=== PATIENT | female | born 1990 | race Caucasian/White ===

== ENCOUNTER 2017-03-26 06:36 | Inpatient (IN) ==
[2017-03-26] MEDS ORDERED: BUTORPHANOL 2 MG/ML VIAL IV PRN (07:43)
[2017-03-26] MEDS ORDERED: ONDANSETRON 4 MG/2 ML VIAL IV PRN (07:43)
[2017-03-26] MEDS ORDERED: OXYTOCIN/LR 20 UNIT/1,000 ML BAG IV ONE ×2 (07:45→15:20)
[2017-03-26] MEDS ORDERED: diphenhydrAMINE 50 MG/1 ML VIAL IV PRN ×2 (07:48)
[2017-03-26] MEDS ORDERED: ONDANSETRON 4 MG/2 ML VIAL IV ONE (07:48)
[2017-03-26] MEDS ORDERED: fentaNYL 2 MCG/ROPIV 0.2% EPID 150 ML EPIDURAL SCH (07:48)
[2017-03-26] MEDS ORDERED: PROMETHAZINE 25 MG/1 ML VIAL IM ONE (07:48)
[2017-03-26] MEDS ORDERED: hydrOXYzine HCL 25 MG/1 ML VIAL IM PRN (07:48)
[2017-03-26] MEDS ORDERED: CITRIC ACID/SODIUM CITRATE 30 ML UDCUP PO ONE (07:48)
[2017-03-26] MEDS ORDERED: ePHEDrine 50 MG/ML AMP IV PRN (07:48)
[2017-03-26] MEDS ORDERED: FAMOTIDINE 20 MG/2 ML VIAL IV ONE (07:48)
[2017-03-26] MEDS ORDERED: LACTATED RINGERS 1,000 ML IV ONE (07:48)
[2017-03-26] MEDS ORDERED: LACTATED RINGERS 1,000 ML IV SCH (08:00)
[2017-03-26] MEDS ORDERED: OXYTOCIN/LR 20 UNIT/1,000 ML BAG IV SCH (08:00)
--- NOTE | 2017-03-26 08:19 | Event Note ---
pelvic :3-4/50/-3 vtx. AROM scant clear fluid
[2017-03-26 08:24] LABS: Basophils # 0.1 10*3/uL (0.0-0.2); Basophils % 0.4 % (0.0-0.8); Eosinophils # 0.1 10*3/uL (0.0-0.87); Eosinophils % 0.7 % (0.00-10.9); Hematocrit 30.4 VOL% (35.7-47.0); Hemoglobin 9.9 GM/DL (12.0-16.0); Immature Granulocytes % 1.6 %; Immature Granulocytes Absolute 0.18 #; Lymphocytes # 2.4 10*3/uL (1.4-4.0); Lymphocytes % 20.7 % (21.3-54.2); Mean Corpuscular HGB Conc 32.6 GM/DL (32-36); Mean Corpuscular Hemoglobin 26 PG (27-34); Mean Corpuscular Volume 79.6 FL (87-102); Mean Platelet Volume 12.8 FL (9.6-12.0); Monocytes # 0.7 10*3/uL (0.11-0.8); Monocytes % 6.3 % (1.7-12.7); Neutrophils # 8.1 10*3/uL (1.4-7.4); Neutrophils % 70.3 % (38.7-73.9); Platelet Count 209 T/CUMM (130-400); Red Blood Count 3.82 MC/CUMM (3.8-5.5); Red Cell Distribution Width 14.1 % (9.3-17.3); White Blood Count 11.5 T/CUMM (4-12)
[2017-03-26 10:15] LABS: Giant Platelets Few; Hypochromasia Slight; Ovalocytes Slight; Platelet Estimate Normal
[2017-03-26 12:33] LABS: Apearance,Urine CLEAR (Clear); Bacteria,Urine Occasional /HPF (Few); Bilirubin,Urine Negative (Negative); Blood, Urine Negative (Negative); Glucose,Urine (UA) Negative (Negative); Ketones,Urine Negative (Negative); Mucus,Urine Occasional /LPF (Occasional); Nitrite,Urine Negative (Negative); Protein,Urine Negative; Squamous Epithelial Cell,Urine Occasional /HPF (0-10); Urine Color Straw (Yellow); Urine Specific Gravity 1.003 (1.001-1.035); Urine Urobilinogen < 2.0 EU/DL (0.2-1.0); WBC,Urine <1 /HPF (0-6)
--- NOTE | 2017-03-26 13:08 | Operative Note ---
Date of procedure: 03/26/17 Pre-op diagnosis: IUp at 39+ weeks , elective induction Post-op diagnosis: same Procedure: The pt was admitted at 39 + weeks for pitocin induction. She was ruptured this morning and pitocin was started. The pt got to completely dilated and shortly thereafter started pushing and in less than 15 minuted she delivered a viable boy over an intact perineum. Apgars 8 and 9. Weight pending at time of this report. The placenta delivered spontaneously. There were 2 skin tags that I got a verbal consent to remove. They were excised using Wills scissors. The base was repaired using 4-0 chromic in an interrupted fashion. Anesthesia: epidural Surgeon / Physician: Marcela Flores Estimated blood loss: other (200) Condition: stable Results - Labs CBC & BMP: 03/26/17 08:08 Discharge Plan - Discharge Medications No Action Pediatric Multivitamin No.42 [Flintstones Complete Chew Tab] 2 tablet PO DAILY - Follow Up or Referral - Forms/Instructions
--- NOTE | 2017-03-26 14:36 | Anesthesia Post-Op ---
Anesthesia Post OP - Post Ansesthetic Evaluation Patient seen in post op: Yes Resp: within normal limits CV: within normal limits Mental: within normal limits Temp: within normal limits Cvre-Rm-Sbzkgojby: within normal limits Nausea and Vomiting: within normal limits Pain: within normal limits
[2017-03-26] MEDS ORDERED: WITCH HAZEL PADS 100/JAR TOP PRN (15:20)
[2017-03-26] MEDS ORDERED: HYDROCORTISONE 2.5% RECTAL CREAM 30 GM TUBE TOP PRN (15:20)
[2017-03-26] MEDS ORDERED: BENZOCAINE 20%/MENTHOL 0.5% SPRAY 56 GM CAN TOP PRN (15:20)
[2017-03-26] MEDS ORDERED: RHO(D) IMMUNE GLOBULIN 300 MCG SYRINGE IM ONE (15:20)
[2017-03-26] MEDS ORDERED: ACETAMINOPHEN 325 MG TABLET PO PRN (15:20)
[2017-03-26] MEDS ORDERED: DIPH/TET/ACEL PERT BOOSTER VACCINE 0.5 ML VIAL IM ONE (15:20)
[2017-03-26] MEDS ORDERED: BISACODYL 10 MG SUPP RECTAL PRN (15:20)
[2017-03-26] MEDS ORDERED: LANOLIN 50% CREAM 0.3 OZ TUBE TOP PRN (15:20)
[2017-03-26] MEDS ORDERED: oxyCODONE/ACETAMINOPHEN 5-325 MG TABLET PO PRN (15:20)
[2017-03-26] MEDS ORDERED: MEASLES/MUMPS/RUBELLA VACCINE 0.5 ML VIAL SUBCUT ONE (15:20)
[2017-03-26] MEDS: oxyCODONE/ACETAMINOPHEN 5-325 MG TABLET PO PRN (19:18)
[2017-03-26] MEDS: IBUPROFEN 800 MG TABLET PO PRN (19:18)
[2017-03-26] MEDS: DOCUSATE SODIUM 100 MG CAPSULE PO SCH (22:02)
[2017-03-27] MEDS: IBUPROFEN 800 MG TABLET PO PRN ×2 (01:04→07:57)
[2017-03-27 06:09] LABS: Basophils # 0.1 10*3/uL (0.0-0.2); Basophils % 0.5 % (0.0-0.8); Eosinophils # 0.2 10*3/uL (0.0-0.87); Eosinophils % 1.2 % (0.00-10.9); Hematocrit 29.6 VOL% (35.7-47.0); Hemoglobin 9.6 GM/DL (12.0-16.0); Immature Granulocytes % 1.4 %; Immature Granulocytes Absolute 0.18 #; Lymphocytes # 3.5 10*3/uL (1.4-4.0); Lymphocytes % 26.7 % (21.3-54.2); Mean Corpuscular HGB Conc 32.4 GM/DL (32-36); Mean Corpuscular Hemoglobin 26 PG (27-34); Mean Corpuscular Volume 80.4 FL (87-102); Mean Platelet Volume 12.1 FL (9.6-12.0); Monocytes # 0.9 10*3/uL (0.11-0.8); Neutrophils # 8.4 10*3/uL (1.4-7.4); Neutrophils % 63.2 % (38.7-73.9); Platelet Count 189 T/CUMM (130-400); Red Blood Count 3.68 MC/CUMM (3.8-5.5); Red Cell Distribution Width 13.9 % (9.3-17.3); White Blood Count 13.3 T/CUMM (4-12)
[2017-03-27] MEDS: oxyCODONE/ACETAMINOPHEN 5-325 MG TABLET PO PRN (07:58)
[2017-03-27] MEDS: DOCUSATE SODIUM 100 MG CAPSULE PO SCH (07:59)
--- NOTE | 2017-03-27 09:54 | OB/GYN Progress Note ---
Assessment and Plan (1) Term delivered Status: Acute Assessment and plan: PPD# 1 doing well. Precautions given. For baby to be circumcised today. continue routine PP care Current Visit: Yes [facility] [facility]ER - PN: Subj Interval history: The pt is feeling well. Her pain and bleeding are under control. The pt desires to go home today. She desires the baby to be circumcised. R/B/A?C were reviewed with the parents of the baby. Exam [employer] - Constitutional Vitals: Vital Signs Temp Pulse Resp BP Pulse Ox 03/27/17 07:24 97.4 F L 69 18 109/65 97 03/27/17 06:44 18 03/27/17 06:00 18 03/27/17 04:00 97.6 F 65 18 103/60 98 03/27/17 03:00 18 03/27/17 02:00 18 03/27/17 00:00 97.1 F L 67 20 108/62 98 03/26/17 20:00 97.4 F L 71 20 113/67 98 03/26/17 18:15 76 18 105/59 99 03/26/17 17:15 71 20 104/66 99 03/26/17 16:15 67 20 102/53 99 03/26/17 15:45 67 18 109/67 99 03/26/17 15:15 97.8 F 65 20 108/61 98 03/26/17 12:00 97.2 F L 60 20 104/60 100 03/26/17 10:41 97.2 F L General appearance: normal weight, no acute distress - Cardiovascular Cardiovascular exam: Present: regular rate and rhythm - Extremities Exam Extremities exam: Absent: calf tenderness - Neurological Exam Neurological exam: Present: alert, oriented X3 - Psychiatric Psychiatric exam: Present: normal affect, normal mood - Skin Skin exam: Present: normal color Results - Labs CBC & BMP: 03/27/17 05:25
[2017-03-27 11:28] VITALS: BP 108/58
--- NOTE | 2017-03-27 16:51 | Discharge Summary ---
Hospital Course - Hospital Course Hospital Course: The pt was admitted at 39 weeks and induced with pitocin. She delivered a healthy baby boy vaginally. She was discharged home on PP D#1 . Precautions given. Diagnosis - Discharge Diagnosis (1) Term delivered Status: Acute Specialty Discharge - Follow Up or Referrals Follow up with: Edith Astorga DO [Physician] - 05/03/17 2:00 pm Discharge Plan - Discharge Data Disposition: Disch To Home/Self Care Condition at Discharge: Stable Discharge Diet: advance to your usual diet Hygiene: may shower Weight Bearing at Discharge: full weight bearing Driving: no restrictions Contact your physician if you experience:: fever over 101, Difficulty voiding, Redness or swelling, Nausea/Vomiting, Shortness of breath, Bleeding, pain uncontrolled by pain medications - Discharge Medications New oxyCODONE/ACETAMINOPHEN 5-325 [Percocet 5-325] 1 tablet PO Q6H PRN #20 tablet PRN Reason: Abdominal Pain No Action Pediatric Multivitamin No.42 [Flintstones Complete Chew Tab] 2 tablet PO DAILY - Follow Up or Referral Follow Up: Edith Astorga DO [Physician] - 05/03/17 2:00 pm - Forms/Instructions Instructions: Vaginal Delivery (DC), Bleeding (DC) Exam - Constitutional Vitals: Period Temp Pulse Resp BP Sys/Lyons Pulse Ox Last 24 Hr 97.1 F-97.8 F 65-76 18-20 103-113/58-67 97-99 Discharge Results Labs on day of discharge: Labs from last 24 hours 03/27/17 05:25 WBC 13.3 H RBC 3.68 L Hgb 9.6 L Hct 29.6 L MCV 80.4 L MCH 26 L MCHC 32.4 RDW 13.9 Plt Count 189 MPV 12.1 H Neut % (Auto) 63.2 Lymph % (Auto) 26.7 Anderson % (Auto) 7.0 Eos % (Auto) 1.2 Baso % (Auto) 0.5 Neut # (Auto) 8.4 H Lymph # (Auto) 3.5 Anderson # (Auto) 0.9 H Eos # (Auto) 0.2 Baso # (Auto) 0.1 Immature Gran % 1.4 Nucleated RBC % 0.0 Immature Gran # 0.18 Nucleated RBCs # 0.00 Immature Plt Fraction 0.0 DS: Provider Date of admission: 03/26/17 07:43 Primary care physician: . No PCP Attending physician on admission: Marcela Hernandez- Consults: 03/26/17 07:43 Consult to Anesthesiology [CONS] Routine Consulting Provider: Reason for Anesthesiology: Epidural Consult Comment: Epidural for pain managment 03/26/17 15:20 Consult to [employer] [CONS] Routine Consult [employer]man: Breast Feeding Discharging clinician: Marcela Hernandez- Expected date of discharge: 03/27/17
== END 2017-03-27 14:30 | disposition home or self-care (01) | DRG 775 ==
LOC: N.LD 06:36 → N.LDOUT 06:36 → EDSTATUS 06:36 → N.LD 06:40 → N.OB 14:52
PROVIDERS: ADMIT Obstetrics & Gynecology; ATTEND Obstetrics & Gynecology